=== PATIENT | male | born 1990 | race Caucasian/White ===

== ENCOUNTER 2020-04-10 14:25 | Emergency (ER) | payer OTHER ==
[~2020-04-10] VITALS: Ht 175.3 cm; Wt 72.7 kg
[2020-04-10 14:40] LABS: COVID AG,FIA SOURCE NASOPHARYNGEAL
[2020-04-10 16:00] VITALS: BP 128/76
== END 2020-04-10 16:13 | disposition home or self-care (01) ==
LOC: EMS 14:27
DX: R09.81 Nasal congestion (principal); Z20.828 Contact with and (suspected) exposure to other viral communicable diseases; Z91.040 Latex allergy status
CPT/HCPCS: 87426